=== PATIENT | female | born 1960 | race Caucasian/White ===

== ENCOUNTER 2016-09-01 12:17 | Emergency (ER) | payer MEDICARE ==
[~2016-09-01 12:17] MED LIST: CLONAZEPAM PO; DURAGESIC50 MCG/PAT TD; LEXAPRO20 M1 PO; LORAZEPAM1 M1 PO; RESTORIL15 MG PO; RT ALBUTEROL CC18 GM IH; SUNMARK OMEPRAZ20 MG PO; TEMAZEPAM30 M1 PO
[2016-09-01 15:24] VITALS: BP 108/69
[2016-09-01] MEDS ORDERED: CYCLOBENZAPRINE10 M1 PO (16:59)
[2016-09-01] MEDS ORDERED: LYRICA 150MG C150 MG PO (17:00)
[2016-09-01] MEDS ORDERED: DURAGESIC25 MCG/PAT TD (17:01)
== END 2016-09-01 15:24 | disposition home or self-care (01) ==
LOC: ED 12:17
DX: L30.9 Dermatitis, unspecified (principal); Z93.2 Ileostomy status; Z85.038 Personal history of other malignant neoplasm of large intestine; Z59.9 Problem related to housing and economic circumstances, unspecified; Z60.9 Problem related to social environment, unspecified; F99 Mental disorder, not otherwise specified; Z91.19 Patient's noncompliance with other medical treatment and regimen; T85.638A Leakage of other specified internal prosthetic devices, implants and grafts, initial encounter
CPT/HCPCS: A4409; A4425

== ENCOUNTER 2016-10-14 22:58 | Emergency (ER) | payer MEDICARE ==
[~2016-10-14] VITALS: Ht 157.5 cm; Wt 63.6 kg
[~2016-10-14 22:58] MED LIST changes: +CYCLOBENZAPRINE10 M1 PO; +DURAGESIC25 MCG/PAT TD; +LYRICA 150MG C150 MG PO
[2016-10-15 00:30] VITALS: BP 88/60
== END 2016-10-15 00:30 | disposition home or self-care (01) ==
LOC: ED 22:58
DX: Z43.3 Encounter for attention to colostomy (principal); Z93.3 Colostomy status
CPT/HCPCS: 13816; 13819; 13821; A4397